=== PATIENT | female | born 1955 | race Caucasian/White ===

== ENCOUNTER → 2017-10-24 | Outpatient (REF) | payer OTHER | LOC: M LAB REF 11:54 | DX: N60.32 Fibrosclerosis of left breast (principal) | CPT/HCPCS: 88305 ==

== ENCOUNTER → 2022-01-14 | Outpatient (CLI) | payer OTHER | LOC: M WHC 11:52 | PROVIDERS: ATTEND Nurse Practitioner Adult Health | DX: Z12.31 Encounter for screening mammogram for malignant neoplasm of breast (principal) ==

== ENCOUNTER 2022-11-21 15:59 | Emergency (ER) | payer OTHER ==
[~2022-11-21] VITALS: Ht 170.2 cm; Wt 80.4 kg
[2022-11-21] MEDS ORDERED: DOXY-444 PO (16:17)
[2022-11-21] MEDS ORDERED: ACET325C5 PO (16:17)
[2022-11-21] MEDS ORDERED: NS 1,000 ML IV ONE (18:25)
[2022-11-21] MEDS ORDERED: KETOROLAC 30 MG/ML 1ML VIAL IV ONE (18:25)
[2022-11-21] MEDS ORDERED: ACETAMINOPHEN 325 MG TAB PO ONE (18:25)
[2022-11-21] MEDS ORDERED: METOCLOPRAMIDE INJ 10MG/2ML VIAL IV ONE (18:25)
[2022-11-21 18:52] LABS: BASO % 0.5 % (0.0-1.0); EOS # 0.1 10^3/uL (0.0-0.5); EOS % 2.1 % (0.0-3.0); HEMATOCRIT 37.7 % (36.0-47.0); HEMOGLOBIN 13.1 g/dl (12.0-15.5); LYMPH # 1.6 10^3/uL (1.5-5.0); LYMPH % 28.1 % (24.0-44.0); MEAN CORPUSCULAR HEMOGLOBIN 29.3 pg (27.0-33.0); MEAN CORPUSCULAR HGB CONC 34.7 g/dl (32.0-36.5); MEAN CORPUSCULAR VOLUME 84.3 fl (80.0-96.0); MONO # 0.7 10^3/uL (0.0-0.8); MONO % 11.3 % (2.0-8.0); NEUTROPHILS # 3.4 10^3/uL (1.5-8.5); NEUTROPHILS % 57.5 % (36.0-66.0); PLATELET COUNT, AUTOMATED 184 10^3/uL (150-450); RED BLOOD COUNT 4.47 10^6/uL (4.00-5.40); WHITE BLOOD COUNT 5.8 10^3/uL (4.0-10.0)
[2022-11-21 18:57] LABS: ERYTHROCYTE SEDIMENTATION RATE 66 mm/hr (0-30)
[2022-11-21 19:25] LABS: BLOOD UREA NITROGEN 11 MG/DL (9-23); CALCIUM LEVEL 8.4 MG/DL (8.3-10.6); CARBON DIOXIDE LEVEL 29 MMOL/L (20-31); CHLORIDE LEVEL 95 MMOL/L (98-107); CREATININE FOR GFR 0.69 MG/DL (0.55-1.30); GLOMERULAR FILTRATION RATE > 60.0 (>45); GLUCOSE, FASTING 102 MG/DL (74-106); POTASSIUM SERUM 3.4 MMOL/L (3.5-5.1); SODIUM LEVEL 133 MMOL/L (136-145)
[2022-11-21] MEDS ORDERED: KETO10TAB PO (20:39)
[2022-11-21 20:48] VITALS: BP 147/77
== END 2022-11-21 20:50 | disposition home or self-care (01) ==
LOC: M ED 15:59
DX: J01.90 Acute sinusitis, unspecified (principal); R51.9 Headache, unspecified; Z88.0 Allergy status to penicillin
CPT/HCPCS: 80048; 85025; 85652; 87486; 87581; 87633; 87798; 96361; 96374; 96375; 99284; J1885; J2765

== ENCOUNTER → 2023-02-04 | Outpatient (CLI) | payer OTHER ==
[~2023-02-04] MED LIST: ACET325C5 PO; DOXY-444 PO; KETO10TAB PO
== END ==
LOC: M WHC 13:16
DX: Z12.31 Encounter for screening mammogram for malignant neoplasm of breast (principal)

== ENCOUNTER → 2024-06-20 | Outpatient (CLI) | payer OTHER ==
[~2024-06-20] MED LIST changes: +DOXY-440 PO; -DOXY-444 PO
== END ==
LOC: M WHC 07:10
PROVIDERS: ATTEND Nurse Practitioner Adult Health
DX: Z12.31 Encounter for screening mammogram for malignant neoplasm of breast (principal); R92.323 Mammographic fibroglandular density, bilateral breasts